=== PATIENT | male | born 1950 | race Caucasian/White ===

== ENCOUNTER 2018-04-16 13:38 | Emergency (ER) | payer OTHER, MEDICARE ==
[~2018-04-16 13:38] MED LIST: ACET1TAB12 PO; ASPI-1005 PO; AZIT500T4 PO; BENZ-39 PO; BUDE0.5A5 IH; CARV6.2579 PO; CLOP75TA14 PO; COMBIVENT INHALER IH; Nitroglycerin SL; SIMV10TA2 PO; TYL3 PO
[2018-04-16] MEDS ORDERED: ACETAMINOPHEN EXTRA STRENGTH 500 MG TABLET ONE (14:26)
== END 2018-04-16 15:29 | disposition home or self-care (01) ==
LOC: EDH 13:38
DX: J20.9 Acute bronchitis, unspecified (principal); I25.810 Atherosclerosis of coronary artery bypass graft(s) without angina pectoris; Z87.891 Personal history of nicotine dependence
CPT/HCPCS: 71046; 87804